=== PATIENT | male | born 1945 | race Caucasian/White ===

== ENCOUNTER → 2019-05-06 | Outpatient (CLI) | payer OTHER ==
--- NOTE | 2019-05-07 11:30 | US ---
EXAM DESCRIPTION: Aorta: Ultrasound. CLINICAL HISTORY: AAA SCREENING COMPARISON: None. TECHNIQUE: Transcutaneous scanning: Two-dimensional and Doppler modes. FINDINGS: Abdominal aorta diameter - Proximal: 2.4 x 2.4 cm. Mid: 2.3 x 2.1 cm. Distal: 3.1 x 2.3 cm. Common Iliac diameter - Right: 9 mm. Left: 8 mm. Other: Minimal atherosclerotic calcification with shadowing. IMPRESSION: 3.1 cm abdominal aortic aneurysm. Recommend follow-up every 3 years. Reference: J Am Ernst Radiol 2013;10:[id number]. Electronically signed by: Hu Rosario MD 05/07/2019 11:28 AM [facility]
== END ==
LOC: US 08:45
PROVIDERS: ATTEND Nurse Practitioner Family
DX: Z13.6 Encounter for screening for cardiovascular disorders (principal); I71.4 Abdominal aortic aneurysm, without rupture